=== PATIENT | male | born 1980 | race Caucasian/White ===

== ENCOUNTER 2024-10-07 15:32 | Emergency (ER) | payer OTHER, BC, SELFPAY ==
[2024-10-07 15:38] VITALS: BP 166/91; PULSE 73; TEMP 36.8; O2SAT 98; BMI 36.2
--- OUTSIDE RECORDS SUMMARY | 2024-10-07 15:50 | XMS_ITS | Encounter Summary ---
Author Organization [facility] Address [address] [place] [address] Phone Care Team Providers Care Scow Hand Name Role Phone Unavailable Primary Care Provider Unavailabl e Encounter Details Date Type Department Care Team (Late st Contact Info) Description 10/03/2022 Patient Risk Score ACO Care Management [address] [place] [address] Social History Tobacco Use Types Packs/Day Years Used Date Smoking Tobacco: Never Assessed Sex and Gender Information Value Date Recorded Sex Assigned at Not on file Legal Sex Male 5:08 PM EST Gender Identity Not on file Sexual Orientation Not on file documented as of this encounter Plan of Treatment Not on file documented as of this encounter Visit Diagnoses Not on filedocumented in this encounter
--- OUTSIDE RECORDS SUMMARY | 2024-10-07 15:50 | XMS_ITS | Clinical Summary ---
Author Organization [facility] Address [address] [place] [address] Phone Care Team Providers Care Refractory Mixer Name Role Phone Unavailable Primary Care Provider Unavailabl e Social History Tobacco Use Types Packs/Day Years Used Date Smoking Tobacco: Never Assessed Sex and Gender Information Value Date Recorded Sex Assigned at Not on file Legal Sex Male 5:08 PM EST Gender Identity Not on file Sexual Orientation Not on file Plan of Treatment Health Maintenance Due Date Last Done Comments HIV Screening 1980 Lipid Panel 1980 Yearly Adult Physical 1980 MMR Vaccines (1 of 1 - Stand heath series) 1981 Hepatitis C Screening 1998 Hepatitis B Vaccines (1 of 3 - 19+ 3-dose series) 08/13/1999 DTaP/Tdap/Td Vaccines (1 - Tdap) 2002 HPV Vaccines (1 - 3-dose sta ndard series) 08/13/2007 COVID-19 Vaccine (2023-2 5 season) 2023 Influenza Vaccine (#1) 2024 Zoster Vaccines (1 of 2) 2030 HIB Vaccines Aged Out No longer eligi ble based on patient's age to complete this topic Hepatitis A Vaccines Aged Out No long er eligible based on patient's age to complete this topic IPV Vaccines Aged Out No longer eligi ble based on patient's age to complete this topic Meningococcal Vaccine Aged Out No valentino adalberto eligible based on patient's age to complete this topic Pneumococcal Vaccine: Pediat rics and At-Risk Adult Patients Aged Out No longer samir gible based on patient's age to complete this topic Rotavirus Vaccines Aged Out No longer eligible based on patient's age to complete this topic
--- OUTSIDE RECORDS SUMMARY | 2024-10-07 15:50 | XMS_ITS | Encounter Summary ---
Author Organization [facility] Address [address] [place] [address] Phone Care Team Providers Care Senior Mobile Developer Name Role Phone Unavailable Primary Care Provider Unavailabl e Encounter Details Date Type Department Care Team (Late st Contact Info) Description 11/03/2022 Patient Risk Score ACO Care Management [address] [place] [address] Social History Tobacco Use Types [...]
--- NOTE | 2024-10-07 16:05 | ED.GENADUL1 ---
HPI HPI - General Adult General Chief complaint: Extremity Injury, Upper Stated complaint: PINCHED R ARM Time Seen by Provider: 10/07/24 15:43 Source: patient Mode of arrival: walk-in Limitations: no limitations History of Present Illness HPI narrative: 44-year-old male presents for left shoulder pain. Just before coming into the emergency department he sustained an injury where his left shoulder was pinched between a conveyor belt and the metal frame of the conveyor system. He states his whole shoulder hurts. He had a tetanus immunization earlier this year. No other injury was sustained. The pain is moderate and worse when he moves. Related Data Home Medications ?Medication ?Instructions ?Recorded ?Confirmed amlodipine 5 mg tablet 5 mg PO DAILY 10/07/24 10/07/24 citalopram 40 mg tablet 40 mg PO DAILY 10/07/24 10/07/24 rosuvastatin 10 mg tablet 10 mg PO DAILY 10/07/24 10/07/24 Previous Rx's ?Medication ?Instructions ?Recorded acetaminophen 300 mg-codeine 30 mg 1 tab PO Q6H PRN pain #20 tabs 10/07/24 tablet ibuprofen 800 mg tablet 800 mg PO Q8H PRN pain #20 tabs 10/07/24 Allergies Allergy/AdvReac Type Severity Reaction Status Date / Time Penicillins Allergy Intermediate Hives Verified 10/07/24 15:38 Sulfa (Sulfonamide Allergy Mild Hives Verified 10/07/24 15:38 Antibiotics) Review of Systems ROS Narrative A ten point review of systems is negative except as noted above. PFSH PFSH Social History Little interest or pleasure in doing things: not at all Feeling down, depressed, or hopeless: not at all Exam Narrative Exam Narrative: Nurses note and vital signs reviewed and patient is not hypoxic. General: The patient appears well and in no apparent distress. Patient is resting comfortably on cart. Skin: Warm, dry, no pallor noted. There is no rash noted. Head: Normocephalic, atraumatic Eye: Normal conjunctiva, no drainage Ears, Nose, Mouth, and Throat: oral mucosa is moist. Nares patent. Cardiovascular: Regular Rate and Rhythm Respiratory: Patient is in no distress, no accessory muscle use, lungs are clear to auscultation, no wheezing, rales or rhonchi Back: non-tender GI: Soft and nontender Musculoskeletal: The right shoulder is examined and he has abrasion present as well as bruising. There is erythema extending to a line of demarcation in the posterior lateral shoulder region. Shoulder has fair range of motion. No obvious deformity in the shoulder. Neurological: A&O, normal speech; radial pulse 2+ and fingers have full range of motion. Psychiatric: Cooperative Constitutional Vital Signs, click to edit/add: Last Vital Signs Temp 98.2 F 10/07/24 15:38 Pulse 73 10/07/24 15:38 Resp 22 H 10/07/24 15:38 BP 166/91 H 10/07/24 15:38 Pulse Ox 98 10/07/24 15:38 O2 Del Method Room Air 10/07/24 15:38 Course Vital Signs Vital signs: Vital Signs Temperature 98.2 F 10/07/24 15:38 Pulse Rate 73 10/07/24 15:38 Respiratory Rate 22 H 10/07/24 15:38 Blood Pressure 166/91 H 10/07/24 15:38 Pulse Oximetry 98 10/07/24 15:38 Oxygen Delivery Method Room Air 10/07/24 15:38 Temperature 98.2 F 10/07/24 15:38 Pulse Rate 73 10/07/24 15:38 Respiratory Rate 22 H 10/07/24 15:38 Blood Pressure 166/91 H 10/07/24 15:38 Pulse Oximetry 98 10/07/24 15:38 Oxygen Delivery Method Room Air 10/07/24 15:38 Medical Decision Making MDM Narrative Medical decision making narrative: X-ray per radiologist shows no bony injury. They suspected subcutaneous emphysema and the patient has an abrasion that corresponds to the area. Sling applied, application checked by me and found to be appropriate, he is neurovascularly intact. Orthopedic referral was made. Treatment diagnosis and follow-up were discussed with the patient. Differential Diagnosis Differential Diagnosis: Shoulder fracture, shoulder sprain, abrasions Imaging Data X-ray right shoulder: Radiologist's impression: ITS Impressions Shoulder X-Ray 10/07/24 16:07 IMPRESSION: No fracture or dislocation. Suspected subcutaneous emphysema is noted along the posterior soft tissues of the right upper arm. Impression dictated by: Bran Arechiga M.D. 10/07/2024 4:38 PM Dictation Location: [place] [address] Electronically authenticated by: [id number] Y Date: 10/07/2024 16:38 Discharge Plan Discharge Chief Complaint: Extremity Injury, Upper Clinical Impression: Sprain of right shoulder, Abrasion Patient Disposition: Home, Self-Care Time of Disposition Decision: 16:37 Condition: Good Mode of Transportation: Private Vehicle Prescriptions / Home Meds: New ibuprofen 800 mg tablet 800 mg PO Q8H PRN (Reason: pain) Qty: 20 0RF acetaminophen-codeine 300-30 mg tablet 1 tab PO Q6H PRN (Reason: pain) Qty: 20 0RF No Action citalopram 40 mg tablet 40 mg PO DAILY rosuvastatin 10 mg tablet 10 mg PO DAILY amlodipine 5 mg tablet 5 mg PO DAILY Print Language: Indonesian Instructions: Shoulder Sprain (ED), Abrasion (ED) Referrals: Wolfgang Anne DO [Primary Care Provider] - 1 week Abdias Jaramillo MD [Physician, Orthopedics]
--- NOTE | 2024-10-07 16:07 | XR_ITS ---
The [address] [address] Patient Name: KELSEA MARTINEZ MRN: [id number] date: 1980 Sex: M Assigned Patient Location: ER Current Patient Location: ED.MAIN Accession/Order Number: [id number] Exam Date: 10/07/2024 16:36 Report Date: 10/07/2024 16:38 At the request of: INA RAYGOZA MD Procedure: XR shoulder RT min 2V XR shoulder RT min 2V 10/07/2024 4:26 PM SIGNS AND SYMPTOMS: ^Pain PROTOCOL: Frontal, Grashey, and scapular Y views of the right shoulder COMPARISON: None FINDINGS: The glenohumeral joint and acromioclavicular joint are preserved. There is no evidence of fracture or dislocation. Visualized right hemithorax is grossly intact. Suspected subcutaneous emphysema is noted along the posterior soft tissues of the right upper arm. XR/XR shoulder RT min 2V IMPRESSION: No fracture or dislocation. Suspected subcutaneous emphysema is noted along the posterior soft tissues of the right upper arm. Impression dictated by: Bran Arechiga M.D. 10/07/2024 4:38 PM Dictation Location: [place] [address] Electronically authenticated by: [id number] Y Date: 10/07/2024 16:38
--- NOTE | 2024-10-07 16:43 | PC.NURSE ---
R arm sling applied at this time
[2024-10-07] MEDS: KETOROLAC TROMETHAMINE 60 MG/2 ML VIAL IM (16:59)
[2024-10-07 17:05] VITALS: BP 148/87; PULSE 83; O2SAT 99
== END 2024-10-07 17:05 | disposition home or self-care (01) ==
PROVIDERS: Emergency Provider Emergency Medicine; PCP Family Medicine
DX: S43.491A Other sprain of right shoulder joint, initial encounter (principal); M25.511 Pain in right shoulder; S40.211A Abrasion of right shoulder, initial encounter; S47.1XXA Crushing injury of right shoulder and upper arm, initial encounter
CPT/HCPCS: 73030; 96372; 99284; J1885